=== PATIENT | male | born 2000 | race Caucasian/White ===

== ENCOUNTER 2021-10-16 18:31 | Inpatient (IN) | payer SELFPAY ==
[~2021-10-16] VITALS: Ht 175.3 cm; Wt 81.6 kg
[~2021-10-16 18:31] MED LIST: BACTROBAN OINT22 GM EXT; ELIMITE 5% CREA60 GM TOP; IBUPROFEN600 MG PO
[2021-10-16 19:17] LABS: RED BLOOD COUNT 4.93 M/UL (4.20-5.50); WHITE BLOOD COUNT 8.6 K/UL (4.5-11.0)
[2021-10-16 19:38] LABS: BUN/CREATININE RATIO 24 (0-10)
[2021-10-17 08:27] LABS: HEMOGLOBIN 13.8 gm/dl (14.0-17.5); RED BLOOD COUNT 4.6 M/UL (4.20-5.50)
[2021-10-17 08:28] LABS: WHITE BLOOD COUNT 5.8 K/UL (4.5-11.0)
[2021-10-17 10:08] LABS: BUN/CREATININE RATIO 17 (0-10)
[2021-10-18] MEDS ORDERED: PROTONIX40 MG PO (16:45)
[2021-10-19] MEDS ORDERED: IBUPROFEN600 MG PO (07:41)
== END 2021-10-19 10:13 | disposition home or self-care (01) | DRG 358 ==
LOC: ER1 18:31 → CDU 23:10 → M/S 10-17 08:59
PROVIDERS: Student in an Organized Health Care Education/Training Program; ADMIT Surgery
PROC: 0DJU4ZZ Inspection of Omentum, Percutaneous Endoscopic Approach (ICD-10-PCS; principal; 2021-10-16)
DX: R10.9 Unspecified abdominal pain (principal); Z20.822 Contact with and (suspected) exposure to COVID-19; F17.290 Nicotine dependence, other tobacco product, uncomplicated; F12.10 Cannabis abuse, uncomplicated; Z82.49 Family history of ischemic heart disease and other diseases of the circulatory system; Z80.6 Family history of leukemia
CPT/HCPCS: 36415; 80053; 81001; 83690; 85025; 96374; 96376; G0378; J0690; J1100; J1170; J1885; J2001; J2250; J2270; J2405; J2704; J3010; J3480; Q9967